=== PATIENT | male | born 2000 | race Caucasian/White ===

== ENCOUNTER 2022-08-18 14:01 | Emergency (ER) | payer BC, SELFPAY ==
[2022-08-18 14:54] VITALS: BP 119/85; PULSE 77; RESP 16; TEMP 36.7; O2SAT 98; BMI 26.4
[2022-08-18 17:50] LABS: Influenza A PCR NEGATIVE (Negative); Influenza B PCR NEGATIVE (Negative); Resp Syncy Virus RNA Qual PCR NEGATIVE (Negative); SARS COV2 PCR INHOUSE NEGATIVE (Negative)
--- NOTE | 2022-08-18 18:13 | ED.URI ---
HPI - URI/Sore Throat General Chief Complaint: Upper Respiratory Symptoms Stated Complaint: Asthma/Chest tightness Time Seen by Provider: 08/18/22 18:06 Source: patient Mode of arrival: ambulatory History of Present Illness HPI Narrative: 22-year-old male with past medical history of asthma presenting to the ED complaining of productive cough, nasal congestion, wheezing, chest tightness w/ asthma exacerbation x6 days. Admits symptoms have been exacerbated by pet dander at home. Has been using inhalers without relief. Denies fever, chills, chest pain, abdominal pain, pedal edema, calf pain, recent travel, sick contacts MD elicited complaint: cough, rhinorrhea and nasal congestion Pertinent past history: asthma Onset (ago): day(s) Related Data Previous Rx's Medication Instructions Recorded albuterol sulfate 90 mcg/actuation 2 puff inhalation Q4-6H PRN 08/18/22 aerosol inhaler shortness of breath or wheezing #6.7 grams prednisone 20 mg tablet 40 mg PO DAILY 5 days #10 tabs 08/18/22 Allergies Allergy/AdvReac Type Severity Reaction Status Date / Time No Known Allergies Allergy Verified 08/18/22 14:52 Review of Systems Review of Systems: Constitutional: No Fever, No Chills ENT/Mouth: No Ear Pain, + Nasal Congestion, No Sinus Pain, No Hoarseness, No sore throat, + Rhinorrhea, No Swallowing Difficulty Cardiovascular: + Chest tightness, + SOB Respiratory: + Cough, + Sputum, + Wheezing Gastrointestinal: No Nausea, No Vomiting, No Diarrhea, No Constipation, No Abdominal pain Genitourinary: No Dysuria, No Hematuria, No Flank Pain Musculoskeletal: No joint pain, No Myalgias, No Joint Swelling Skin: No Skin Lesions, No rash Neuro: No Weakness, No Numbness, No Paresthesias Yes all other systems are reviewed and are negative Constitutional: Constitutional: Reports as per [facility] Past Medical History Attestation statement: The following information was validated with the patient. Social History Social History Advance Directives: No Advance Directives Information Provided: No Physical Exam Vital Signs: Vital Signs: Last Vital Signs Temp 98.6 F 08/18/22 18:15 Pulse 88 08/18/22 18:15 Resp 18 08/18/22 18:15 BP 115/58 L 08/18/22 18:15 Pulse Ox 98 08/18/22 18:15 O2 Del Method 08/18/22 18:15 BMI result Body Mass Index 26.4 Const: General: cooperative, healthy appearing and no acute distress Orientation/consciousness: patient oriented x3 Limitations: no limitations HEENT: Head: Yes normal to inspection and Yes atraumatic Ears: hearing grossly normal bilaterally, external ears normal, TM's normal bilaterally and mastoids normal General nose exam: Normal external nose present Face and sinus: Yes normal facial exam Mouth: Normal oral and palatal mucosa present and no drooling Throat: Yes posterior oropharynx normal, Yes tonsils normal, Yes uvula midline, No peritonsillar mass, No uvula laterally displaced and No uvular edema Eyes: General: appearance normal, both eyes and all related structures EOM: EOMs intact bilaterally Neck: Neck: Yes normal visual inspection and Yes no meningeal signs Resp: Effort & Inspection: normal respiratory effort and no respiratory distress Auscultation: wheezes expiratory wheezes (mild) and throughout Cardio: Rate: regular rate Heart sounds: S1 normal heart sound present and S2 normal heart sound present Skin: Rashes: no rashes Wounds: no wounds Neuro: General: patient oriented x3, tone normal and no meningeal signs Gait exam (Neuro): Normal gait present Extrem: General: Yes normal to inspection, Yes no pedal edema and Yes no calf tenderness Course Course Course Narrative: -chest x-ray unremarkable. -COVID-19/influenza/RSV negative -1899-- ED care transferred to LISANDR[facility] Balderrama pending re-eval after duoneb and anticipated discharge home Medical Decision Making Medical Decision Making [facility] Narrative: 22-year-old male with past medical history of asthma presenting to the ED complaining of productive cough, nasal congestion, wheezing, chest tightness w/ asthma exacerbation x6 days. On exam vital signs stable, NAD, nontoxic appearing, mild end expiratory wheeze noted, no pedal edema / calf tenderness. Concern for asthma exacerbation vs viral illness vs pneumonia. Low suspicion for ACS/PE Plan: CXR, COVID 19/influenza/RSV testing, DuoNeb Differential Diagnosis Differential Diagnoses: The differential diagnosis associated with the presentation includes (as above) Lab Data Labs: Lab Results 08/18/22 Range/Units 17:02 Influenza Type A (PCR) NEGATIVE (Negative) Influenza Type B (PCR) NEGATIVE (Negative) RSV RNA Qual (PCR) NEGATIVE (Negative) SARS-CoV-2 RNA (RT-PCR) NEGATIVE (Negative) Radiology Impression Discussion of test interpretation with radiology: I have reviewed the radiologist's reading. Independent Historian Clinical information obtained from an independent historian. History obtained from or confirmed by: Parent Discharge Plan Discharge Clinical Impression: Asthma exacerbation Patient Disposition: Home, Self-Care Instructions: Asthma (ED) Additional Instructions: You tested negative for COVID-19, the flu, and RSV. your chest x-ray is unremarkable. Continue to use your inhalers at home, in addition start taking prednisone. If symptoms persist or worsening of constant worsening chest pain or shortness of breath return to the emergency department Prescriptions: New prednisone 20 mg tablet 40 mg PO DAILY 5 Days Qty: 10 0RF albuterol sulfate 90 mcg/actuation HFA aerosol inhaler 2 puff inhalation Q4-6H PRN (Reason: shortness of breath or wheezing) Qty: 6.7 0RF Referrals: Tim Maldonado MD [Primary Care Provider] - 5 days
[2022-08-18 18:15] VITALS: BP 115/58; PULSE 88; RESP 18; TEMP 37; O2SAT 98
--- NOTE | 2022-08-18 18:18 | PC.NURSE ---
[facility]
[2022-08-18 18:47] VITALS: PULSE 98; RESP 18; O2SAT 99
--- NOTE | 2022-08-18 20:11 | PC.NURSE ---
pt medicated per order, pt understands how to use inhailer as he has one at home with a spacer he uses.
== END 2022-08-18 20:12 | disposition home or self-care (01) ==
PROVIDERS: Emergency Provider Internal Medicine; PCP Pediatrics
DX: J45.901 Unspecified asthma with (acute) exacerbation (principal); Z20.828 Contact with and (suspected) exposure to other viral communicable diseases
CPT/HCPCS: 0241U; 71045; 94640; 99283; 99285